=== PATIENT | female | born 1965 | race Caucasian/White ===

== ENCOUNTER → 2017-04-24 | Outpatient (CLI) | payer OTHER ==
[~2017-04-24] MED LIST: CELE40TA PO; E-Z-PAQUE 96% w/w SUSP 176GM BTL As Ordered ONE
--- NOTE | 2017-04-25 10:38 | REP ---
Clinical: Change in bowel habits Findings: Integration Engineer film of the abdomen is unremarkable. Single contrast small bowel follow-through examination demonstrates normal motility, peristalsis, and mucosal outline of the duodenum, jejunum, and ileum including terminal ileum, ileocecal valve and cecum. Total fluoroscopic time 1 minute 38 seconds Impression: Normal small bowel follow-through examination. Signed by Timur Monterroso MD 04/25/2017 10:29 A
== END ==
LOC: M RAD 08:11
PROVIDERS: ATTEND Physician Assistant Medical
DX: R19.4 Change in bowel habit (principal)

== ENCOUNTER 2017-07-14 11:03 | Outpatient (CLI) | payer OTHER ==
[~2017-07-14] VITALS: Ht 170.2 cm; Wt 104.3 kg
[~2017-07-14 11:03] MED LIST changes: -E-Z-PAQUE 96% w/w SUSP 176GM BTL As Ordered ONE; +NS 1,000 ML IV ONE
[2017-07-14] MEDS ORDERED: LIDOCAINE 2% INJ 100 MG/5 ML SDV (FOR ANES.) As Ordered ONE (12:51)
[2017-07-14] MEDS ORDERED: PROPOFOL 200 MG/20 ML VIAL As Ordered ONE (12:51)
--- NOTE | 2017-07-14 12:51 | ROOR ---
Patient Name: Fifi Templeton Procedure Date: 07/14/2017 12:40 PM Date of : 1965 Age: 52 Room: [facility] Gender: Female Note Status: Finalized Procedure: Upper GI endoscopy Indications: Dyspepsia, Heartburn Providers: Jack SANCHEZ MD Referring MD: LACEY KATE NP Requesting Provider: Medicines: Monitored Anesthesia Care Complications: No immediate complications. Procedure: Pre-Anesthesia Assessment: - The heart rate, respiratory rate, oxygen saturations, blood pressure, adequacy of pulmonary ventilation, and response to care were monitored throughout the procedure. The Endoscope was introduced through the mouth, and advanced to the second part of duodenum. The upper GI endoscopy was accomplished without difficulty. The patient tolerated the procedure well. Findings: The esophagus was normal. The stomach was normal. The examined duodenum was normal. Impression: - Normal esophagus. - Normal stomach. - Normal examined duodenum. - No specimens collected. Recommendation: - Observe patient's clinical course. - Continue present medications. Jack Sanchez MD Jack SANCHEZ MD 07/14/2017 12:50:50 PM This report has been signed electronically. Number of Addenda: 0 Note Initiated On: 07/14/2017 12:40 PM Estimated Blood Loss: Estimated blood loss: none.
--- NOTE | 2017-07-14 13:06 | ROOR ---
Patient Name: Fifi Templeton Procedure Date: 07/14/2017 12:41 PM Date of : 1965 Age: 52 Room: [facility] Gender: Female Note Status: Finalized Procedure: Colonoscopy Indications: Screening for colorectal malignant neoplasm, Incidental change in bowel habits noted Providers: Jack SANCHEZ MD Referring MD: LACEY KATE NP Requesting Provider: Medicines: Monitored Anesthesia Care Complications: No immediate complications. Procedure: Pre-Anesthesia Assessment: - The heart rate, respiratory rate, oxygen saturations, blood pressure, adequacy of pulmonary ventilation, and response to care were monitored throughout the procedure. The Colonoscope was introduced through the anus and advanced to 3 cm into the ileum. The colonoscopy was performed without difficulty. The patient tolerated the procedure well. The quality of the bowel preparation was good. Findings: The perianal and digital rectal examinations were normal. The colon (entire examined portion) appeared normal. The terminal ileum appeared normal. Impression: - The entire colon is normal. - The examined portion of the ileum was normal. - Small internal hemorrhoids. - No specimens collected. Recommendation: - Repeat colonoscopy in 10 years for screening purposes. Jack Sanchez MD Jack SANCHEZ MD 07/14/2017 1:06:20 PM This report has been signed electronically. Number of Addenda: 0 Note Initiated On: 07/14/2017 12:41 PM Estimated Blood Loss: Estimated blood loss: none.
[2017-07-14 13:25] VITALS: BP 126/82
== END 2017-07-14 13:35 | disposition home or self-care (01) ==
LOC: M OPP 11:03
PROVIDERS: ATTEND Internal Medicine Gastroenterology
DX: Z12.11 Encounter for screening for malignant neoplasm of colon (principal); K64.8 Other hemorrhoids; R19.4 Change in bowel habit; R10.13 Epigastric pain; R12 Heartburn; R11.0 Nausea; R14.0 Abdominal distension (gaseous); F41.9 Anxiety disorder, unspecified; F32.9 Major depressive disorder, single episode, unspecified; Z91.010 Allergy to peanuts; Z79.899 Other long term (current) drug therapy

== ENCOUNTER → 2017-11-16 | Outpatient (REF) | payer OTHER | LOC: M LAB REF 13:18 | DX: R05 Cough (principal) ==

== ENCOUNTER → 2019-07-15 | Outpatient (CLI) | payer OTHER ==
[~2019-07-15] MED LIST changes: +MIRE1IUD IU; -NS 1,000 ML IV ONE
[2019-07-15 15:36] LABS: BASO % 0.5 % (0.0-1.0); EOS # 0.1 10^3/uL (0.0-0.5); EOS % 0.6 % (0.0-3.0); HEMATOCRIT 41.9 % (36.0-47.0); LYMPH # 1.4 10^3/uL (1.5-5.0); LYMPH % 16.5 % (24.0-44.0); MEAN CORPUSCULAR HEMOGLOBIN 31.9 pg (27.0-33.0); MEAN CORPUSCULAR HGB CONC 33.4 g/dl (32.0-36.5); MEAN CORPUSCULAR VOLUME 95.4 fl (80.0-96.0); MONO # 0.4 10^3/uL (0.0-0.8); MONO % 5.2 % (0.0-5.0); NEUTROPHILS # 6.5 10^3/uL (1.5-8.5); NEUTROPHILS % 76.8 % (36.0-66.0); PLATELET COUNT, AUTOMATED 257 10^3/uL (150-450); RED BLOOD COUNT 4.39 10^6/uL (4.00-5.40); WHITE BLOOD COUNT 8.4 10^3/uL (4.0-10.0)
[2019-07-15 16:02] LABS: BLOOD UREA NITROGEN 16 MG/DL (7-18); CARBON DIOXIDE LEVEL 26 MEQ/L (21-32); CHLORIDE LEVEL 105 MEQ/L (98-107); CREATININE FOR GFR 0.82 MG/DL (0.55-1.30); GLOMERULAR FILTRATION RATE > 60.0 (>51); GLUCOSE, FASTING 83 MG/DL (70-100); SODIUM LEVEL 138 MEQ/L (136-145)
--- NOTE | 2019-07-15 20:20 | ECGEPIP ---
[facility] Test Date: 2019-07-15 Pat Name: TAE PRITCHETT Department: Room: - Gender: Female Search Engineer: CHANELLE : 1965 Requested By: Bryant Biggs Order Number: [id number] Reading MD: Misha Villafuerte Measurements Intervals [place] Rate: 65 P: 63 GA: 163 QRS: 44 QRSD: 93 T: 44 QT: 378 QTc: 394 Interpretive Statements Normal sinus rhythm Nonspecific ST-T wave abnormalities Comparison tracing not on file Electronically Signed on 07-15-2019 20:20:41 EDT by Misha Villafuerte
== END ==
LOC: M LAB 15:03
PROVIDERS: ATTEND Podiatrist
DX: M20.21 Hallux rigidus, right foot (principal)

== ENCOUNTER 2019-07-26 09:06 | Day surgery (SDC) | payer OTHER ==
[~2019-07-26] VITALS: Ht 172.7 cm; Wt 96.6 kg
[~2019-07-26 09:06] MED LIST changes: +KETOROLAC 60 MG/2 ML VIAL (J1885) As Ordered ONE; +LIDOCAINE 1% MDV 20ML VIAL SQ PRN; +LIDOCAINE 2% INJ 100 MG/5 ML SDV (FOR ANES.) As Ordered ONE; +ONDANSETRON 4MG/2ML VIAL (J2405) As Ordered ONE; +PROPOFOL 200 MG/20 ML VIAL As Ordered ONE; +dexameTHASONE 4 MG/ML 1ML VIAL (J1100) As Ordered ONE
[2019-07-26] MEDS ORDERED: LR 1,000 ML IV ONE (09:30)
[2019-07-26] MEDS ORDERED: MIDAZOLAM INJ 2 MG/2 ML VIAL (J2250) As Ordered ONE (09:48)
[2019-07-26] MEDS ORDERED: fentaNYL 100 MCG/2 ML INJECTION (J3010) As Ordered ONE (09:49)
[2019-07-26] MEDS ORDERED: dexameTHASONE 4 MG/ML 1ML VIAL (J1100) As Ordered ONE (10:24)
[2019-07-26] MEDS ORDERED: NEOSPORIN GU IRRIG 20 ML VIAL As Ordered ONE (10:25)
[2019-07-26] MEDS ORDERED: BACITRACIN PWD 50,000 UNITS VIAL As Ordered ONE (10:25)
[2019-07-26] MEDS ORDERED: BUPIVACAINE HCL 0.5% 30 ML VIAL As Ordered ONE (10:25)
[2019-07-26] MEDS ORDERED: LIDOCAINE 2% MDV 20 ML VIAL As Ordered ONE (10:25)
[2019-07-26] MEDS ORDERED: ceFAZolin 2 GM/D5W 50 ML IV BAG (J0690 PER 500MG) As Ordered ONE (10:45)
[2019-07-26] MEDS ORDERED: PROPOFOL 200 MG/20 ML VIAL As Ordered ONE ×3 (10:57→12:13)
[2019-07-26] MEDS ORDERED: METOCLOPRAMIDE INJ 10MG/2ML VIAL (J2765) As Ordered ONE (11:03)
[2019-07-26] MEDS ORDERED: PHENYLephrine HCL 500 MCG/5 ML (100MCG/ML) SYRINGE (J2370) As Ordered ONE (11:08)
[2019-07-26 13:50] VITALS: BP 108/59
--- NOTE | 2019-07-26 14:27 | REP ---
RIGHT FOOT, FOUR VIEWS: Four views of the right foot performed. There is a metallic screw in the distal fifth metatarsal. Osseous structures are well aligned. There is mild inferior calcaneal spurring. Small accessory ossicle is seen adjacent to the medial aspect of the navicular bone. Electronically Signed by Medardo Girard MD 07/29/2019 02:56 P
--- NOTE | 2019-07-27 10:39 | RO ---
DATE OF PROCEDURE: 07/26/2019 PREOPERATIVE DIAGNOSES: Soft tissue mass plantar aspect fifth metatarsal, right foot. Bunionette deformity, right foot. Hallux limitus deformity, right foot. POSTOPERATIVE DIAGNOSES: Synovial cyst submetatarsal five right foot. Bunionette deformity, right foot. Hallux limitus deformity, right foot. PROCEDURE: 1. FROZEN SECTION SOFT TISSUE MASS, SUBMETATARSAL FIVE, RIGHT FOOT 2. EXCISION OF SOFT TISSUE MASS RIGHT FOOT: 3. TAILOR'S BUNIONECTOMY WITH DISTAL V OSTEOTOMY AND INTERNAL SCREW FIXATION RIGHT FOOT: 4. CHEILECTOMY FIRST METATARSAL PHALANGEAL JOINT, RIGHT FOOT: SURGEON: HALI Gonzales ASSISTANT: None. ANESTHESIA: Local monitored anesthesia care (MAC). IRRIGATION: Dilute bacitracin, neomycin and polymyxin B solution. HEMOSTASIS: Ankle pneumatic tourniquet at 200 mmHg. 4 minutes for the initial inflation, was then released for approximately 30 minutes, and then reinflated for 74 minutes on the right ankle. HARDWARE UTILIZED: Arthrex 2.5 x 16 mm headless compression screw. DESCRIPTION OF OPERATION: On 07/26/2019 this 54-year-old white female was taken from her hospital room to the operating room and placed on the operating room table in supine position. Following the induction of IV sedation, local and regional anesthesia, the right lower extremity was prepped and draped in the usual aseptic manner. Once sterile draping was completed, an ankle pneumatic tourniquet was rapidly inflated to 200 mmHg. The right lower extremity was returned to the operating room table and the following procedure was performed: FROZEN SECTION SOFT TISSUE MASS, SUBMETATARSAL FIVE, RIGHT FOOT: Attention was directed to the lateral surface of the patient's right foot where a 1 cm incision was placed over the fifth metatarsal soft tissue mass. Dissection was carried down to the mass. Utilizing a scalpel, a small section of tumor was removed and sent to pathology for frozen section. The wound was held shut over bandages and a gauze and the tourniquet was deflated while we waited for the biopsy results. The biopsy results came back as probable synovial cyst. The tourniquet was then reinflated to 200 mmHg and attention was directed to the lateral surface of the foot where the following procedure was performed. EXCISION OF SOFT TISSUE MASS RIGHT FOOT: The incision was lengthened approximately 1 cm in a distal direction and 2 cm in a proximal direction. Dissection was carried down to the cyst where it was meticulously dissected from the surrounding soft tissue and the dorsal roof of the fifth metatarsal phalangeal joint capsule and the cyst was removed. It measured approximately 2.5 cm in length by 1 cm in thickness and 1.5 cm in width. The wound was flushed with copious amounts of dilute bacitracin, neomycin and polymyxin B solution and the following procedure was performed. TAILOR'S BUNIONECTOMY WITH DISTAL V OSTEOTOMY AND INTERNAL SCREW FIXATION RIGHT FOOT: A linear capsulotomy was then performed over the fifth metatarsal phalangeal joint capsule and periosteal envelope was created dorsally and plantarly. The hypertrophied lateral eminence was then osteotomized from distal to proximal and extirpated from the wound. A V shaped osteotomy was performed int he distal metaphysis of the fifth metatarsal with a long plantar and short dorsal wing. Upon creation of this osteotomy, the capital fragment was transposed 30-40% of the width of the shaft of the fifth metatarsal and fixated with a 2.5 x 16 mm headless compression screw. Intraoperative C-arm image reveals good overall reduction of the osteotomy and fixation. The redundant cortical spike was osteotomized from dorsal to plantar. The lateral surface was rasped to a smooth contour and the wound was flushed with copious amounts of dilute bacitracin, neomycin and polymyxin B solution. Capsular structures were coapted and maintained utilizing #2-0 Monocryl in a simple interrupted type fashion. The subcutaneous tissues were coapted and maintained using #5-0 Monocryl in a simple interrupted type fashion. The skin incisions were coapted and maintained using #4-0 Prolene in a simple interrupted and horizontal mattress type fashion. Attention was directed to the first metatarsal phalangeal joint where the following procedure was performed. CHEILECTOMY FIRST METATARSAL PHALANGEAL JOINT, RIGHT FOOT: Attention was directed to the patients right foot where there was noted to be hallux limitus deformity. At this time a 6 cm incision was placed over the first metatarsal phalangeal joint. The incision was deepened through subcutaneous tissues and coursing venous tributaries were identified, underscored, clamped, cut, ligated, and electrocoagulated as necessary. A linear capsulotomy was then performed in the same plane and all vital neurovascular structures were retracted medial and laterally. A linear capsulotomy was then performed in the same plane as the original skin incision. The capsular and periosteal structures were then dissected free in one continuous layer dorsally, medially and laterally, thus creating a capsular periosteal type envelope. This revealed the large spurring on the dorsal aspect of the first metatarsal and approximately 35% of the articular cartilage was eroded dorsally. This was osteotomized from distal to proximal through and through. The medial eminence was resected from distal to proximal through and through exiting medial to the sesamoidal groove as well as a lateral spur off the dorsal lateral aspect of the first metatarsal. A small 1 mm area of cartilage was still eroded. This was microfractured with a 1.1 mm K-wire. The wound was flushed with copious amounts of dilute bacitracin, neomycin and polymyxin B solution. Attention was directed to the proximal phalanx where the plantar aspect was released and the spurt was exposed on the dorsal aspect. Inadvertently, the extensor tendon was partially transected three-quarters of its length. This was subsequently repaired with a four stranded core Douglas repair with a running peripheral stitch consisting of #4-0 nylon with good apposition and strength of the tendon. The dorsal 20% of the proximal phalanx was resected from distal to proximal through and through. No remaining cartilaginous defect was noted. The wound was flushed with copious amounts of dilute bacitracin, neomycin and polymyxin B solution. Attention was directed towards closure where the capsular structures were coapted and maintained utilizing #2-0 Monocryl in a simple interrupted type fashion. Subcutaneous tissues were coapted and maintained using #5-0 Monocryl in a simple interrupted type fashion. Skin incision was coapted and maintained using #4-0 Prolene in a simple interrupted and horizontal mattress type fashion. Following the completion of the surgical procedure, 4 mg of dexamethasone sodium phosphate was instilled proximal to the surgical site. Attention was directed towards bandaging where a sterile compressive bandage was applied consisting of Adaptic, 4x4's, 4x4 splints, Neri, Kerlix, and Coban. The ankle pneumatic tourniquet was rapidly deflated and instantaneous capillary filling time was noted in digits 1-5 of the patient's right foot. The patient apparently having tolerated the surgical procedure well was taken from the OR to the recovery room for further monitoring by the anesthesia department. Postoperative instructions will be given upon discharge. GADIEL
== END 2019-07-26 14:05 | disposition home or self-care (01) ==
LOC: M SDC 09:06
PROVIDERS: ATTEND Podiatrist
DX: M21.621 Bunionette of right foot (principal); M20.21 Hallux rigidus, right foot; M67.471 Ganglion, right ankle and foot; F32.9 Major depressive disorder, single episode, unspecified; Z79.899 Other long term (current) drug therapy; Z91.010 Allergy to peanuts; Z91.018 Allergy to other foods
CPT/HCPCS: 28090; 28113; 28289; 73630; 88300; 88305; 88311; C1713; J0690; J1100; J1885; J2250; J2370; J2405; J2765; J3010

== ENCOUNTER → 2021-06-23 | Outpatient (CLI) | payer OTHER ==
[~2021-06-23] MED LIST changes: +ISOVUE-370 76% 100ML VIAL ONE; -KETOROLAC 60 MG/2 ML VIAL (J1885) As Ordered ONE; -LIDOCAINE 1% MDV 20ML VIAL SQ PRN; -LIDOCAINE 2% INJ 100 MG/5 ML SDV (FOR ANES.) As Ordered ONE; -ONDANSETRON 4MG/2ML VIAL (J2405) As Ordered ONE; -PROPOFOL 200 MG/20 ML VIAL As Ordered ONE; -dexameTHASONE 4 MG/ML 1ML VIAL (J1100) As Ordered ONE
--- NOTE | 2021-06-23 13:44 | REPVR ---
PROCEDURE INFORMATION: Exam: CT Neck With Contrast Exam date and time: 06/23/2021 10:33 AM Age: 56 years old Clinical indication: Mass, lump, or swelling in neck; Other: Left anterior; Additional info: Lump anterior lt side of neck TECHNIQUE: Imaging protocol: Computed tomography images of the neck with contrast. Radiation optimization: All CT scans at this facility use at least one of these dose optimization techniques: automated exposure control; mA and/or kV adjustment per patient size (includes targeted exams where dose is matched to clinical indication); or iterative reconstruction. Contrast material: ISOVUE 370; Contrast volume: 75 ml; Contrast route: INTRAVENOUS (IV); COMPARISON: No relevant prior studies available. FINDINGS: Nasopharynx: Unremarkable. Oropharynx: Unremarkable. No significant tonsillar enlargement. Hypopharynx: Unremarkable. Larynx: Unremarkable. Normal epiglottis. Retropharyngeal space: Unremarkable. Submandibular/Parotid glands: Normal. Glands are normal in size. Thyroid: Normal. No enlarged or calcified nodules. Lymph nodes: Unremarkable. No lymphadenopathy. Trachea: Visualized trachea is unremarkable. Lungs: Unremarkable as visualized. Bones/joints: Unremarkable. No acute fracture. Soft tissues: Unremarkable. No significant soft tissue swelling. IMPRESSION: No focal soft tissue abnormality identified. Electronically signed by: Adilia Denise On 06/23/2021 13:43:54 PM
== END ==
LOC: M PLAIMG 09:59
PROVIDERS: ATTEND Registered Nurse
DX: R22.1 Localized swelling, mass and lump, neck (principal)

== ENCOUNTER → 2025-07-09 | Outpatient (REF) | payer OTHER ==
[~2025-07-09] MED LIST changes: -ISOVUE-370 76% 100ML VIAL ONE
== END ==
LOC: M LAB REF 14:13
PROVIDERS: ATTEND Physician Assistant Medical
DX: R20.2 Paresthesia of skin (principal); M21.372 Foot drop, left foot